=== PATIENT | female | born 1980 | race Caucasian/White ===

== ENCOUNTER 2017-08-24 20:10 | Emergency (ER) | payer OTHER ==
[2017-08-24] MEDS: IBUPROFEN 800 MG TAB PO (21:06)
== END 2017-08-24 21:30 | disposition home or self-care (01) ==
LOC: E/R 21:30
DX: S93.492A Sprain of other ligament of left ankle, initial encounter (principal); W18.39XA Other fall on same level, initial encounter; Y92.9 Unspecified place or not applicable
CPT/HCPCS: 73610; 99283-25